=== PATIENT | female | born 1995 | race Two or more races ===

== ENCOUNTER 2023-07-12 11:48 | Inpatient (IN) | payer OTHER ==
[~2023-07-12] VITALS: Ht 160 cm; Wt 74.8 kg
[2023-07-12] MEDS ORDERED: PREN-96 PO (13:05)
[2023-07-12] MEDS ORDERED: LACTATED RINGER'S 1,000 ML IV ONE (13:45)
[2023-07-12] MEDS ORDERED: PENICILLIN G POT 5MIL/D5 50ML 50 ML IV ONE (14:15)
[2023-07-12] MEDS ORDERED: WITCH HAZEL-GLYCERIN PAD TOP PRN (14:15)
[2023-07-12] MEDS ORDERED: LIDOCAINE 2%HCL (LOCAL ANESTH.) INJ 20ML MDV IJ PRN (14:15)
[2023-07-12] MEDS ORDERED: PROMETHAZINE HCL 25 MG/ML 1ML IV PRN (14:15)
[2023-07-12] MEDS ORDERED: TERBUTALINE SULFATE 1 MG/ML 1ML VIAL SC PRN (14:15)
[2023-07-12] MEDS ORDERED: NALBUPHINE HCL 10 MG/1ml INJECTION IV PRN (14:15)
[2023-07-12] MEDS ORDERED: LACT. RINGERS/OXYTOCIN 20UNITS 500 ML IV ONE ×2 (14:15→14:45)
[2023-07-12 14:38] LABS: Basophils # (auto) 0 10 ^3/uL (0-0.2); Basophils % (auto) 0.3 % (0.0-2.0); Eosinophils # (auto) 0.1 10 ^3/uL (0-0.8); Eosinophils % (auto) 0.9 % (0.0-7.0); Hematocrit 39.3 % (36.0-46.0); Hemoglobin 13.3 g/dL (12.2-16.2); Lymphocytes # (auto) 1.6 10 ^3/uL (0.4-5.4); Lymphocytes % (auto) 16.5 % (10.0-50.0); Mean Corpuscular Hemoglobin 30.4 pg (28.0-32.0); Mean Corpuscular Hgb Conc. 33.9 g/dL (32.0-36.0); Mean Corpuscular Volume 89.7 fL (80.0-100.0); Monocytes # (auto) 0.7 10 ^3/uL (0-1.3); Monocytes % (auto) 7.6 % (0.0-12.0); Neutrophils % (auto) 74.7 % (37.0-80.0); Nucleated Red Blood Cells % 0.1 %; Red Blood Cells 4.38 10^6/uL (4.0-5.20); Red Cell Distribution Width 14.3 % (11.8-14.3); White Blood Cell 9.4 10^3/uL (4.4-10.8)
[2023-07-12 15:19] LABS: Albumin 3.9 g/dL (3.2-4.8); Alkaline Phosphatase 168 U/L (46-116); Anion Gap 9 (5-15); Aspartate Aminotransferase 21 U/L (13-40); Bilirubin, Total 0.4 mg/dL (0.2-1.0); Carbon Dioxide 20 mmol/L (20-30); Chloride 108 mmol/L (98-107); Glucose 77 mg/dL (74-106); Potassium 3.8 mmol/L (3.5-5.1); Sodium 137 mmol/L (136-145); Total Protein 6.7 g/dL (5.7-8.2)
[2023-07-12 15:21] LABS: Alanine Aminotransferase < 9 U/L (7-40); BUN/Creatinine Ratio 8.5 (10.0-20.0); Blood Urea Nitrogen < 5 mg/dL (9-23)
[2023-07-12 15:35] LABS: INR 0.91 (0.9-1.15); Partial Thromboplastin Time 26.4 SEC (24.5-34.5); Prothrombin Time 9.6 sec (9.3-11.8)
[2023-07-12] MEDS: LACTATED RINGER'S 1,000 ML IV SCH ×2 (15:41→20:50)
[2023-07-12 16:21] LABS: Urine Bacteria NONE SEEN /hpf (None Seen); Urine Blood Negative /uL (Negative); Urine Clarity Clear (Clear); Urine Color Colorless (Yellow); Urine Protein, UAD Negative (Negative); Urine Specific Gravity 1.007 (1.001-1.035); Urine Urobilinogen Normal (Negative); Urine WBC 4 /hpf (0 - 5); Urine pH 6.5 (5.0-8.0)
[2023-07-12] MEDS ORDERED: miSOPROStol 50 MCG per PRE-CUT 1/2 TAB PO PRN (16:30)
[2023-07-12 17:02] LABS: Amphetamine Screen, Urine Neg (NEGATIVE); Barbiturate Scree,Urine Neg (NEGATIVE); Benzodiazephine Screen, Urine Neg (NEGATIVE); Cannabinoid Screen, Urine Neg (NEGATIVE); Cocaine Screen, Urine Neg (NEGATIVE); Opiate Scree,Urine Neg (NEGATIVE); Phencyclidine Screen, Urine Neg (NEGATIVE)
[2023-07-12] MEDS ORDERED: PENICILLIN G POTASSIUM 2,500,000 UNITS in D5W 5% 50 ML IV SCH ×2 (18:15→21:00)
[2023-07-13] MEDS ORDERED: PENICILLIN G POTASSIUM 2,500,000 UNITS in D5W 5% 50 ML IV SCH ×2 (01:00→03:00)
[2023-07-13] MEDS ORDERED: NALOXONE HCL 0.4 MG/ML VIAL IV ONE (02:00)
[2023-07-13] MEDS ORDERED: LIDOCAINE HCL 2 %PF INJ 10ML AMP IJ ONE (02:00)
[2023-07-13] MEDS ORDERED: ROPIVACAINE HCL 200 ML EPI SCH ×2 (02:00→03:00)
[2023-07-13] MEDS ORDERED: ePHEDrine SULFATE 50 MG/ML AMP IV ONE (02:00)
[2023-07-13] MEDS ORDERED: fentaNYL CITRATE 100 MCG/2 ML VL IV ONE (02:00)
[2023-07-13] MEDS ORDERED: METHYLERGONOVINE MALEATE 0.2 MG/ML AMP IM ONE (04:50)
[2023-07-13] MEDS ORDERED: CARBOPROST TROMETHAMINE 250 MCG/1ML VIAL IM ONE (04:51)
[2023-07-13] MEDS ORDERED: METHYLERGONOVINE MALEATE 0.2 MG/ML AMP IM PRN (05:15)
[2023-07-13] MEDS ORDERED: ONDANSETRON HCL 4 MG/2 ML VIAL ONE (05:41)
[2023-07-13 06:06] LABS: RPR Non Reactive (Non Reactive)
[2023-07-13] MEDS ORDERED: ACETAMINOPHEN 325 MG TAB PO PRN (07:00)
[2023-07-13 10:57] VITALS: BP 117/60; PULSE 76; RESP 18; TEMP 98.2; O2SAT 96
[2023-07-13 15:18] VITALS: BP 125/68; PULSE 73; RESP 18; TEMP 97.9; O2SAT 97
[2023-07-13 18:40] VITALS: BP 115/76; PULSE 69; RESP 17; TEMP 98.2; O2SAT 97
[2023-07-13] MEDS ORDERED: TETANUS-DIPTH-ACEL PERTUSSIS 0.5ML SYR Tdap IM ONE (19:00)
[2023-07-13] MEDS: IBUPROFEN 600 MG TAB PO PRN (20:26)
[2023-07-13] MEDS: DERMOPLAST 60ML BOTTLE TOP PRN (22:28)
[2023-07-13] MEDS: PHISODERM TOP SOLN 240ML BTL TOP PRN (22:29)
[2023-07-13 22:49] VITALS: BP 107/57; PULSE 69; RESP 18; TEMP 97.9; O2SAT 96
[2023-07-14 02:42] VITALS: BP 126/60; PULSE 69; RESP 17; TEMP 97.8; O2SAT 96
[2023-07-14 07:05] VITALS: BP 114/55; PULSE 72; RESP 17; TEMP 98.3; O2SAT 96
[2023-07-14] MEDS: DERMOPLAST 60ML BOTTLE TOP PRN (08:05)
[2023-07-14] MEDS: IBUPROFEN 600 MG TAB PO PRN (08:06)
[2023-07-14] MEDS: PHISODERM TOP SOLN 240ML BTL TOP PRN (10:55)
[2023-07-14 11:30] VITALS: BP 117/70; PULSE 68; RESP 16; TEMP 98.5; O2SAT 98
[2023-07-16 00:07] LABS: Treponema pallidum Ab (FTA-Ab) Non Reactive (Non Reactive)
== END 2023-07-14 11:40 | disposition home or self-care (01) | DRG 806 ==
LOC: UNDOADMOB 11:48 → LDRP 11:48 → OBSVTOIN 14:08
PROVIDERS: ADMIT Obstetrics & Gynecology; ATTEND Obstetrics & Gynecology
PROC: 10E0XZZ Delivery of Products of Conception, External Approach (ICD-10-PCS; principal; 2023-07-13)
PROC: 0HQ9XZZ Repair Perineum Skin, External Approach (ICD-10-PCS; 2023-07-13)
PROC: 3E0R3BZ Introduction of Anesthetic Agent into Spinal Canal, Percutaneous Approach (ICD-10-PCS; 2023-07-13)
PROC: 00HU33Z Insertion of Infusion Device into Spinal Canal, Percutaneous Approach (ICD-10-PCS; 2023-07-13)
PROC: 3E0234Z Introduction of Serum, Toxoid and Vaccine into Muscle, Percutaneous Approach (ICD-10-PCS; 2023-07-13)
DX: O48.0 Post-term pregnancy (principal); O41.03X0 Oligohydramnios, third trimester, not applicable or unspecified; Z37.0 Single live birth; Z3A.40 40 weeks gestation of pregnancy; O69.81X0 Labor and delivery complicated by cord around neck, without compression, not applicable or unspecified; O70.0 First degree perineal laceration during delivery; Z23 Encounter for immunization
CPT/HCPCS: 36415; 59025; 59409; 62282; 76818; 80053; 80307; 81001; 81002; 85025; 85610; 85730; 86592; 86850; 86900; 86901; 90715; 94760; 96360; 96361; 96365; 96366; 96372; G0378; J2405; J2540; J2590; J7060